=== PATIENT | male | born 1980 | race Caucasian/White ===

== ENCOUNTER 2018-06-10 18:08 | Emergency (ER) | payer BC ==
[~2018-06-10 18:08] MED LIST: AZIT500T47 PO; BACL-1 PO; CEPH-13 PO; CEPH500C24 PO; CYCL10TA29 PO; DIAZ-303 PO; DICL-195 PO; HYD5L PO; HYDR-385 PO; HYDR-4309 PO; IBUP-1618 PO; IBUP600T22 PO; LOR5 PO; LOR5/325 PO; NAPR-1043 PO; NO RTN MEDS; OXYC-865 PO; P-EP1CAP10 PO; PENI-24 PO; PER PO; PSEU-75 PO
[2018-06-10] MEDS ORDERED: DIAZEPAM 50 MG/10 ML MDV IVP ONE (18:30)
[2018-06-10] MEDS ORDERED: KETOROLAC 15 MG/ML VIAL IVP ONE (18:30)
[2018-06-10] MEDS ORDERED: ACETAMINOPHEN 500 MG TAB PO ONE (18:30)
--- NOTE | 2018-06-10 18:41 | ER Report ---
History and Physical Time Seen By MD: 18:25 Hx. of Stated Complaint: PT PRESENTS WITH RECENT HX OF FALLING LANDING ON BUTTOCKS. NO RADIATING PAIN HPI/ROS CHIEF COMPLAINT: back pain HISTORY OF PRESENT ILLNESS: pt states he stepped off a curb and fell into a hole just prior to arrival; states he landed on his buttocks and this shot pain up his back and down his legs. Patient states he was unable to easily ambulate on his own after this and called a friend to drive him over here. Patient states that he has pain both lower lumbar and left upper buttock. Patient denies hitting head, extremities or other injuries. Patient does not have incontinence, perineal anesthesia, new weakness in the leg. Pain is currently 10 out of 10. There is no other radiation. Patient denies chest pain, shortness breath, abdominal pain. REVIEW OF SYSTEMS: Constitutional: No fever, no chills. Eyes: No discharge. ENT: No sore throat. Cardiovascular: No chest pain, no palpitations. Respiratory: No cough, no shortness of breath. Gastrointestinal: No abdominal pain, no vomiting. Genitourinary: No hematuria. Musculoskeletal: above Skin: No rashes. Neurological: No headache. Allergies: Coded Allergies: BEE STINGS (Unverified Allergy, Unknown, 06/10/18) cat dander (Verified Allergy, Unknown, 06/10/18) Home Meds Active Scripts Methocarbamol (ROBAXIN) 500 Mg Tablet, 1000 MG PO TID for Muscle Relaxant for 7 Days, #20 TAB Prov:JIMMY MAX MD 06/10/18 Discontinued Scripts Hydrocodone Bit/Acetaminophen (HYDROCODON-ACETAMINOPHEN 5-325) 1 Each Tablet, 1 EACH PO Q4-6H PRN for PAIN, #10 TAB 0 Refills Prov:DEMOND PORRAS SENIOR ELECTRICAL DESIGN ENGINEER-BC 05/28/18 Reviewed Nurses Notes: Yes Old Medical Records Reviewed: Yes Hx Smoking: Yes (1PPD) Smoking Status: Current: Every Day Smoker, Heavy Tobacco Smoker Exposure to Second Hand Smoke?: No Hx Substance Use Disorder: No Hx Alcohol Use: No Constitutional Vital Sign - Last 24 Hours 06/10/18 06/10/18 06/10/18 06/10/18 18:10 18:53 19:02 19:08 Temp 99.0 Pulse 116 101 102 Resp 22 B/P (MAP) 145/119 134/96 (109) Pulse Ox 96 94 93 O2 Delivery Room Air 06/10/18 06/10/18 06/10/18 19:23 19:28 19:30 Pulse 109 112 B/P (MAP) 145/108 (120) Pulse Ox 95 95 Physical Exam General Appearance: The patient is alert, has no immediate need for airway protection and no signs of toxicity. pt is standing next to gurney, slightly bent over, appears uncomfortable. Eyes: Pupils equal and round no pallor or injection. ENT, Mouth: Mucous membranes are moist. Respiratory: There are no retractions, lungs are clear to auscultation. Cardiovascular: Regular rate and rhythm. [ ] Gastrointestinal: Abdomen is soft and non tender, no masses, bowel sounds normal. Neurological: alert, oriented Skin: Warm and dry, no rashes. Musculoskeletal: Neck is supple non tender. Extremities are nontender, nonswollen and have full range of motion. pt has ttp l2-4 without e/o contusion, abrasion, laceration, no stepoff. Pt has l upper buttocks ttp DIFFERENTIAL DIAGNOSIS: After history and physical exam differential diagnosis was considered for back pain including but not limited to muscular pain, herniated disc, spine fracture, intra-abdominal causes and urinary tract infection Medical Decision Making EKG/Imaging Imaging lumbar xray - straightening of lordosis, no e/o fx ED Course/Re-evaluation ED Course I evaluated patient and reviewed prior records which include multiple visits for low back pain. Patient states he's had lumbar disc herniation in the past and had been doing well after corticosteroid injection in [place] and is concerned that the incident today has exacerbated his condition. Patient has some relief with initial round of medications of Valium, Toradol, Tylenol. However pain is still significant on reassessment. On reevaluation and palpation patient's pain now appears to be right lumbar paraspinal approximately 2 through 4. I offered patient trigger point injection to which he agreed. See procedure note for complete procedure. Patient tolerated this very well with significant relief. At this point we'll discharge with prescription for muscle relaxant, recommend ibuprofen, ice, stretching, follow-up and strict return precautions. There is no evidence of fracture, cauda equina or other emergent condition. Procedure Procedure: Trigger point injection. Indication: Lumbar muscle spasm. Consent: Verbal. I discussed risks and benefits. Patient understands and has no further questions prior to procedure. Preparation: Standard sterile preparation was performed. Performance: After sterile preparation I applied topical numbing, then injected 10 mL combination of 5 mL's of 0.5% bupivacaine and 2% lidocaine. This was injected 2 cm lateral to lateral process of L3 vertebrae. I fanned out in cranial and caudal directions. Patient tolerated procedure very well with almost immediate significant improvement of pain and without complications. Patient ambulates with minimal discomfort on discharge. Decision to Disposition Date: Jun 10, 2018 Decision to Disposition Time: 19:54 Depart Departure Latest Vital Signs Vital Signs Date Time Temp Pulse Resp B/P (MAP) Pulse Ox O2 Delivery O2 Flow Rate FiO2 06/10/18 19:30 145/108 (120) 06/10/18 19:28 112 95 06/10/18 18:10 99.0 22 Room Air Impression: Primary Impression: Lumbar back pain Condition: Improved Disposition: HOME OR SELF-CARE New Scripts Methocarbamol (ROBAXIN) 500 Mg Tablet 1000 MG PO TID for Muscle Relaxant for 7 Days, #20 TAB Prov: JIMMY MAX MD 06/10/18 Patient Instructions: Acute Low Back Pain (ED) Additional Instructions: Follow up with a primary doctor in 1 week for re-evaluation and determination of need for physcial therapy or other referral. Return to ED for new swelling, pain, fever, weakness, or any concerns. JIMMY MAX MD Jun 10, 2018 18:41
--- NOTE | 2018-06-10 19:14 | RADIOLOGY IMAGING REPORT ---
[place] [facility] [place] Casimiro Armendariz : 1980 MR: [id number] V: [id number] EXAM DATE: ORDERING PHYSICIAN: JIMMY MAX TECHNOLOGIST: Location: [facility] - [place] Patient: Casimiro Armendariz : 1980 Visit/Account:[id number] Date of Sevice: 06/10/2018 EXAMINATION: Lumbar spine, 2 views 06/10/2018 6:41 PM HISTORY: Tenderness to palpation after fall COMPARISON: 03/04/2017 FINDINGS: 5 nonrib-bearing lumbar vertebral levels. Lumbar vertebral body heights are well-preserve d. Disc height loss and spurring at L2-3 again shown. Other disc levels are unremarkable. Minimal levoscoliotic curvature with the apex at L3 is unchanged. No acute bony finding. IMPRESSION: Stable lumbar spine with L2-3 spondylosis again shown. No acute bony injury demonstrated . Report Dictated By: Deuce Reed MD at 06/10/2018 7:09 PM Report E-Signed By: Deuce Reed MD at 06/10/2018 7:11 PM WSN:[id number]
[2018-06-10 19:30] VITALS: BP 145/108
[2018-06-10] MEDS ORDERED: METH-542 PO (19:44)
== END 2018-06-10 19:54 | disposition home or self-care (01) ==
LOC: ER 18:27
DX: M54.5 Low back pain (principal)
CPT/HCPCS: 20552; 72100; 96374; 96375; 99284; J1885; J3360

== ENCOUNTER 2018-06-14 08:05 | Emergency (ER) | payer BC ==
[~2018-06-14 08:05] MED LIST changes: +METH-542 PO
--- NOTE | 2018-06-14 08:09 | ER Report ---
History and Physical Time Seen By MD: 08:30 HPI/ROS 38-year-old male has been seen in the emergency department multiple times for tooth pain presents to the emergency department complaining of ongoing dental pain. He fractured his tooth while eating a sandwich week ago. He has [place] Medicaid, so was unable to see a dentist in [place]. He states he has a dental appointment in [place] on June 28. He has been using [id number] topical gel and ibuprofen for pain. She has not been on any antibiotics. No fever or chills. Able to take by mouth. No trismus. Remainder of the 14 system rev: Yes Allergies: Coded Allergies: BEE STINGS (Unverified Allergy, Unknown, 06/10/18) cat dander (Verified Allergy, Unknown, 06/10/18) Home Meds Active Scripts Amoxicillin (AMOXICILLIN) 500 Mg Capsule, 1 CAP PO Q12H for 14 Days, #28 CAPSULE 0 Refills Prov:PAULA MAX MD 06/14/18 Methocarbamol (ROBAXIN) 500 Mg Tablet, 1000 MG PO TID for Muscle Relaxant for 7 Days, #20 TAB Prov:JIMMY MAX MD 06/10/18 Discontinued Scripts Hydrocodone Bit/Acetaminophen (HYDROCODON-ACETAMINOPHEN 5-325) 1 Each Tablet, 1 EACH PO Q4-6H PRN for PAIN, #10 TAB 0 Refills Prov:DEMOND PORRAS ROLLER COASTER ENGINEER-BC 05/28/18 Hx Smoking: Yes (1PPD) Smoking Status: Current: Every Day Smoker, Heavy Tobacco Smoker Exposure to Second Hand Smoke?: No Hx Substance Use Disorder: No Hx Alcohol Use: No Constitutional Vital Sign - Last 24 Hours 06/14/18 08:08 Temp 97.7 Pulse 102 Resp 18 Pulse Ox 97 O2 Delivery Room Air Physical Exam General Appearance: Alert, no distress. Eyes: Pupils equal and round no pallor or injection. ENT, Mouth: multiple dental caries without evidence of abscess Mouth: Mucous membranes are moist. Throat: No erythema or exudates there is no tonsillar hypertrophy and uvula is midline. Musculoskeletal: Neck is supple non tender, no adenopathy. Skin: Warm and dry, no rashes. DIFFERENTIAL DIAGNOSIS: After history and physical exam differential diagnosis was considered for dental abscess, deep space mouth infection, dental fracture Medical Decision Making ED Course/Re-evaluation ED Course Uncomplicated dental Patience without evidence of further deep space infection or abscess. Has dental appointment scheduled for June 28. We'll place the patient on amoxicillin for some relief. Counseled him to continue with [id number] NSAIDs and topical pain relief meds Decision to Disposition Date: Jun 14, 2018 Decision to Disposition Time: 09:05 Depart Departure Latest Vital Signs Vital Signs Date Time Temp Pulse Resp B/P (MAP) Pulse Ox O2 Delivery O2 Flow Rate FiO2 06/14/18 08:08 97.7 102 18 97 Room Air Impression: Primary Impression: Fractured tooth Condition: Improved Disposition: HOME OR SELF-CARE New Scripts Amoxicillin (AMOXICILLIN) 500 Mg Capsule 1 CAP PO Q12H for 14 Days, #28 CAPSULE 0 Refills Prov: PAULA MAX MD 06/14/18 Patient Instructions: Toothache (ED) Problem Qualifiers Primary Impression: Fractured tooth Encounter type: initial encounter Fracture type: closed Qualified Codes: S02.5XXA - Fracture of tooth (traumatic), initial encounter for closed fracture PAULA MAX MD Jun 14, 2018 08:09
[2018-06-14 09:00] VITALS: BP 130/103
[2018-06-14] MEDS ORDERED: AMOX-362 PO (09:07)
== END 2018-06-14 09:15 | disposition home or self-care (01) ==
LOC: ER 08:12
DX: S02.5XXA Fracture of tooth (traumatic), initial encounter for closed fracture (principal)
CPT/HCPCS: 99281

== ENCOUNTER → 2018-09-11 | Outpatient (CLI) | payer BC ==
[~2018-09-11] MED LIST changes: +AMOX-362 PO; -HYDR-4309 PO; +HYDR-653 PO
== END ==
LOC: AMB 21:20
PROVIDERS: ATTEND Nurse Practitioner
DX: S51.811A Laceration without foreign body of right forearm, initial encounter (principal); S61.511A Laceration without foreign body of right wrist, initial encounter; F10.129 Alcohol abuse with intoxication, unspecified; X99.1XXA Assault by knife, initial encounter; Y92.59 Other trade areas as the place of occurrence of the external cause
CPT/HCPCS: A0425; A0429

== ENCOUNTER 2019-04-11 16:08 | Emergency (ER) | payer BC ==
[2019-04-11 16:18] VITALS: BP 138/70
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
--- NOTE | 2019-04-11 17:04 | RADIOLOGY IMAGING REPORT ---
FACILITY: [facility] - [place] PATIENT NAME: Casimiro Armendariz : 1980 MR: [id number] V: [id number] EXAM DATE: ORDERING PHYSICIAN: DEMOND PORRAS TECHNOLOGIST: Location: [facility] - [place] Patient: Casimiro Armendariz : 1980 Visit/Account:[id number] Date of Sevice: 04/11/2019 EXAMINATION: Right foot 3 views HISTORY: Right great toe injury. COMPARISON: None. FINDINGS: No evidence of acute fracture or dislocation about the right foot. Normal alignment. Joint spaces a re preserved. Small plantar and Achilles calcaneal spurs. Soft tissues are radiographically unremarkable. IMPRESSION: No acute osseous findings in the right foot. Report Dictated By: Zenon Messina MD at 04/11/2019 4:55 PM Report E-Signed By: Zenon Messina MD at 04/11/2019 4:56 PM WSN:[id number]
[2019-04-11] MEDS ORDERED: ACETAMINOPHEN 500 MG TAB PO ONE (17:10)
== END 2019-04-11 17:36 | disposition home or self-care (01) ==
LOC: ER 17:05
DX: S90.211A Contusion of right great toe with damage to nail, initial encounter (principal); S99.921A Unspecified injury of right foot, initial encounter
CPT/HCPCS: 73630; 99283; L3260